=== PATIENT | female | born 1970 | race Two or more races ===

== ENCOUNTER 2016-09-05 08:23 | Observation (INO) | payer OTHER ==
[~2016-09-05] VITALS: Ht 160 cm; Wt 74.1 kg
[2016-09-05] VITALS (28 sets, daily range): BP systolic 98–132; BP diastolic 58–70; PULSE 66–101; RESP 11–18; Ht 160 cm; Wt 74.1 kg
[2016-09-05] MEDS ORDERED: CEFAZOLIN 2 GM/50 ML (PMX) 50 ML IVPB ONE (08:30)
[2016-09-05] MEDS ORDERED: SOD CHLORIDE 0.9% 1,000 ML IV SCH (08:30)
[2016-09-05] MEDS ORDERED: BUPIVACAINE 0.25%/EPI (SDV) 30 ML INJ ONE (08:45)
[2016-09-05 09:53] LABS: ADD SCAN DIFF NO
[2016-09-05 10:08] LABS: BASOPHILS % 0.2 % (0.0-2.0); EOSINOPHILS # 0.2 10^3/ul (0.0-0.5); HEMATOCRIT 40.2 % (37.0-47.0); HEMOGLOBIN 13.5 g/dl (12.0-16.0); LYMPHOCYTES # 2.1 10^3/ul (0.8-2.9); LYMPHOCYTES % 24.8 % (15.0-51.0); MEAN CORPUSCULAR HEMOGLOBIN 32.2 pg (29.0-33.0); MEAN CORPUSCULAR HGB CONC 33.6 g/dl (32.0-37.0); MEAN CORPUSCULAR VOLUME 95.9 fl (82.0-101.0); MEAN PLATELET VOLUME 10.9 fl (7.4-10.4); MONOCYTE # 0.5 10^3/ul (0.3-0.9); MONOCYTES % 5.5 % (0.0-11.0); NEUTROPHIL # 5.6 10^3/ul (1.6-7.5); NEUTROPHILS % 67.3 % (39.0-77.0); PLATELET COUNT 292 10^3/UL (140-415); RED BLOOD COUNT 4.19 10^6/ul (4.20-5.40); RED CELL DISTRIBUTION WIDTH 12.6 % (11.5-14.5); WHITE BLOOD COUNT 8.3 10^3/ul (4.8-10.8)
[2016-09-05 10:17] LABS: CREATININE 0.55 mg/dl (0.44-1.00); POTASSIUM 3.8 mmol/L (3.5-5.1)
[2016-09-05 10:31] LABS: INR 0.98; PARTIAL THROMBOPLASTIN TIME 30.3 Sec (25.0-35.0)
[2016-09-05] MEDS ORDERED: ISOSULFAN BLUE 1% 5 ML INJ SC ONE (10:38)
[2016-09-05] MEDS: D5W-0.45 NACL + KCL 20 MEQ 1,000 ML IV SCH ×3 (11:04→22:26)
[2016-09-05] MEDS ORDERED: hydrALAzine 20 MG INJ IV PRN (11:30)
[2016-09-05] MEDS ORDERED: METOCLOPRAMIDE 10 MG INJ IV PRN (11:30)
[2016-09-05] MEDS ORDERED: ONDANSETRON 4 MG INJ IV PRN ×2 (11:30)
[2016-09-05] MEDS ORDERED: ACETAMINOPHEN 1000MG/100ML IV 100 ML IVPB PRN (11:30)
[2016-09-05] MEDS ORDERED: HYDROmorphONE (0.2 MG/ML) 10ML SYG IV PRN ×2 (11:30)
[2016-09-05] MEDS ORDERED: EPHEDrine SULFATE 50 MG/5 ML SYG IV PRN (11:30)
[2016-09-05] MEDS ORDERED: LABETALOL HCL 20MG INJ IV PRN (11:30)
[2016-09-05] MEDS ORDERED: MEPERIDINE 25 MG INJ IV PRN (11:30)
[2016-09-05] MEDS ORDERED: FENTAnyl 50 MCG/ML VIAL IV PRN ×2 (11:30)
[2016-09-05] MEDS ORDERED: DIPHENHYDRAMINE 50 MG INJ IV PRN (11:30)
[2016-09-05] MEDS ORDERED: MIDAZOLAM 1 MG/ML 2 ML INJ IV PRN (11:30)
[2016-09-05] MEDS ORDERED: morphine (1 MG/ML) 10ML SYRINGE IV PRN ×2 (11:30)
[2016-09-05] MEDS ORDERED: METOCLOPRAMIDE 10 MG INJ ONE (11:36)
[2016-09-05] MEDS ORDERED: CEFAZOLIN 1 GM INJ ONE (11:36)
[2016-09-05] MEDS ORDERED: LIDOCAINE 2% (SDV) 5 ML INJ ONE (11:36)
[2016-09-05] MEDS ORDERED: MEPERIDINE 100 MG INJ ONE (11:36)
[2016-09-05] MEDS ORDERED: PROPOFOL 20 ML ONE (11:36)
[2016-09-05] MEDS ORDERED: ONDANSETRON 4 MG INJ ONE (11:36)
[2016-09-05] MEDS ORDERED: EPHEDrine SULFATE 50 MG/5 ML SYG ONE (12:17)
[2016-09-05] MEDS: morphine 2 MG INJ IV PRN ×3 (17:35→22:22)
--- NOTE | 2016-09-05 20:25 | OPR ---
DATE OF OPERATION: 09/05/2016 PREOPERATIVE DIAGNOSIS: Invasive cancer of the left breast. POSTOPERATIVE DIAGNOSIS: Invasive cancer of the left breast. OPERATION PERFORMED: Left partial mastectomy with axillary dissection utilizing sentinel lymph node technique. ANESTHESIA: General. ANESTHESIOLOGIST: Dr. Shantelle Rosen. SURGEON: Dr. Barajas. PRESIDENT & FOUNDER: Dr. Estevez. INDICATIONS FOR PROCEDURE: The patient is a 45-year-old female who underwent screening mammography and was found to have a suspicious lesion in her left breast. Subsequent core needle biopsy reveale d an invasive cancer. She was counseled as to risks versus benefits of partial mastectomy and senti bea lymph node biopsy. She consented and was scheduled for surgery. DESCRIPTION OF PROCEDURE: The patient was brought to the operating theater, placed under general an esthesia. The left breast and axillary region was prepped and draped in the usual sterile fashion. Approximately 4 mL of 1% Lymphazurin blue dye were then injected peritumorally and breast was gentl y massaged for approximately 12 minutes. At this point, a 3 to 4 cm incision was made in the left a xillary hairline. Subcutaneous tissue was dissected with cautery down through the clavipectoral fas rell. A dye-stained lymphatic was traced to a sentinel node. The sentinel node was resected using t he LigaSure device. Intraoperative analysis was negative for definite metastasis. Therefore, the w ound was irrigated. Minimal bleeding was controlled with cautery, and the skin was closed with a 4- 0 Vicryl suture in a subcuticular fashion. Attention was then directed to performing the partial mastectomy. A curvilinear incision was made o jennifer the palpable mass which was located approximately at 2 o'clock, approximately 3 cm from the nipp le-areolar border. Subcutaneous tissue was dissected with cautery. The skin edges were elevated wi th skin hooks and wide circumferential dissection of the tissue associated with the mass took place, taking great care to ensure adequate margins. Specimen was elevated, transected, oriented, sent fo r radiographic confirmation of capture of the previously placed biopsy clip. The capture was confir med. The specimen was then sent for permanent pathologic analysis. The wound was irrigated. Minim al bleeding was controlled with cautery, and the skin was then reapproximated with 4-0 Vicryl suture s in subcuticular fashion. Dermabond was applied to both incisions. The patient tolerated procedur e well. The estimated blood loss was 20 mL. There were no complications and the patient was transp orted in stable condition to the recovery room. Dictated By: CHEVY BEAL/MAGALY Conf#: [id number] DID#: [id number]
--- NOTE | 2016-09-05 22:58 | HP ---
DATE OF ADMISSION: 09/05/2016 HISTORY OF PRESENT ILLNESS: The patient is a 45-year-old female who denies prior medical h istory. The patient underwent surveillance mammography and subsequent biopsy, which revealed invasi ve cancer of the left breast. The patient was evaluated by Dr. Barajas in surgical consultation and loree rene was brought to the hospital and underwent partial mastectomy of the left breast and axillary dissection. Postoperatively, patient experienced significant pain and was admitted for further eval uation and management. PAST MEDICAL HISTORY: Negative. PAST SURGICAL HISTORY: The patient had a in 2000. FAMILY HISTORY: Negative for history of breast or ovarian cancer. SOCIAL HISTORY: The patient lives with her family. The patient denies any tobacco use, denies any alcohol use, denies any illicit drug use. ALLERGIES: NO KNOWN ALLERGIES. HOME MEDICATIONS: None. REVIEW OF SYSTEMS: A 12-point review of systems is negative unless what mentioned in the HPI. PHYSICAL ASSESSMENT: GENERAL: Well-developed, well-nourished female. Currently is awake, alert. VITAL SIGNS: Temperature 98.1, pulse is 92, blood pressure 108/63, respiratory rate 15, oxygen satu ration 98% on room air. HEENT: Head is atraumatic, normocephalic. Pupils equal, round, reactive to light and accommodation . Oral mucosa is pink and moist. NECK: Supple. No cervical lymphadenopathy, no thyromegaly. CHEST: Lungs clear bilaterally. There are no rhonchi, wheezes, rales noted. The patient with a engle rgical dressing over chest which is dry, clean, and intact. CARDIOVASCULAR: Normal S1, S2. No murmurs, gallops, clicks, rubs noted. ABDOMEN: Round, soft, nondistended, nontender. Bowel sounds present. EXTREMITIES: There is no edema, clubbing, cyanosis. Pulses equal bilaterally 2+. SKIN: There is no rash, petechiae noted. NEUROLOGIC: The patient is awake, alert, and oriented x4. No focal deficits noted. Motor strength 5/5 in all extremities. LABORATORY DATA: On admission, CBC: White blood cells 8.3, hemoglobin 13.5, hematocrit 40.2, plate lets 292. Chemistry: Sodium is 144, potassium 3.8, chloride 105, carbon dioxide 26, anion gap 17, BUN is 15, creatinine 0.55, glucose 88, calcium 9.0. PT 13.0, INR is 0.94, aPTT is 30.3. ASSESSMENT AND PLAN: Invasive cancer of the left breast status post left partial mastectomy and axi llary dissection. Continue morphine and Tylenol p.r.n. for pain. Zofran p.r.n. for nausea. Contin ue IV fluids. Continue incentive spirometer q.1 hour while the patient is awake. Advance diet if p atient tolerates. Continue sequential compression devices for deep venous thrombosis prophylaxis. Further recommendations based on clinical course. Plan of care discussed with Dr. Medina. Dictated By: RASHAWN AGUILA SCREENER AND BLENDER for HOLLY MEDINA MD SR/NTS Conf#: [id number] DID#: [id number]
[2016-09-06 00:19] VITALS: BP 111/59; RESP 18
[2016-09-06 04:30] VITALS: BP 114/55; PULSE 90; RESP 16
[2016-09-06] MEDS: morphine 2 MG INJ IV PRN (05:29)
[2016-09-06 05:42] LABS: ADD SCAN DIFF NO
[2016-09-06 05:48] LABS: BASOPHILS % 0.2 % (0.0-2.0); EOSINOPHILS # 0.2 10^3/ul (0.0-0.5); EOSINOPHILS % 2.1 % (0.0-7.0); HEMATOCRIT 37.1 % (37.0-47.0); HEMOGLOBIN 12.1 g/dl (12.0-16.0); LYMPHOCYTES # 2.5 10^3/ul (0.8-2.9); LYMPHOCYTES % 29.4 % (15.0-51.0); MEAN CORPUSCULAR HEMOGLOBIN 31.8 pg (29.0-33.0); MEAN CORPUSCULAR HGB CONC 32.6 g/dl (32.0-37.0); MEAN CORPUSCULAR VOLUME 97.4 fl (82.0-101.0); MEAN PLATELET VOLUME 10.8 fl (7.4-10.4); MONOCYTE # 0.6 10^3/ul (0.3-0.9); MONOCYTES % 7.2 % (0.0-11.0); NEUTROPHIL # 5.2 10^3/ul (1.6-7.5); PLATELET COUNT 282 10^3/UL (140-415); RED BLOOD COUNT 3.81 10^6/ul (4.20-5.40); RED CELL DISTRIBUTION WIDTH 12.7 % (11.5-14.5); WHITE BLOOD COUNT 8.6 10^3/ul (4.8-10.8)
[2016-09-06 06:18] LABS: POTASSIUM 3.8 mmol/L (3.5-5.1)
[2016-09-06 06:20] LABS: CREATININE 0.5 mg/dl (0.44-1.00)
[2016-09-06 06:21] LABS: CALCIUM 8.2 mg/dl (8.4-10.2)
[2016-09-06] MEDS: D5W-0.45 NACL + KCL 20 MEQ 1,000 ML IV SCH ×2 (06:42→11:04)
[2016-09-06] MEDS ORDERED: HYDROCODONE/APAP (5/325) TAB PO PRN (08:00)
[2016-09-06 08:16] VITALS: BP 118/59; RESP 14
[2016-09-06] MEDS ORDERED: HYDR-3498 PO (15:57)
--- NOTE | 2016-09-07 01:08 | PN ---
DATE: Postop day #1 left partial mastectomy with sentinel lymph node axillary dissection. SUBJECTIVE: No complaint. OBJECTIVE: Vital signs 98.1, 85, 14, blood pressure 118/59, saturation 97% on room air. LABORATORY DATA: WBC 8600, hemoglobin 12.1. Dressing is intact. Moves left hand and left forearm and left shoulder easily. ASSESSMENT AND PLAN: Postoperative day #1 partial mastectomy with axillary dissection for cancer of the left breast. Patient is stable. Patient is going to be discharged home to be followed with Livia Barajas in the office. [place] pain medication has been written for the patient. Dictated By: AR PINEDO MD PS/NTS Conf#: [id number] DID#: [id number]
--- NOTE | 2016-09-12 04:44 | DS ---
DATE OF ADMISSION: 09/06/2016 DATE OF DISCHARGE: 09/06/2016 FINAL DIAGNOSIS: Invasive cancer of the left breast status post partial mastectomy and axillary dis section. BRIEF HISTORY: The patient is an unfortunate 45-year-old female with no prior significant medical history. The patient underwent surveillance mammography and subsequent biopsy which reveale d invasive cancer of the left breast. The patient was evaluated by Dr. Barajas in surgical consultati on and the patient was brought to the hospital and underwent partial mastectomy of the left breast w ith axillary dissection. , the patient complained of significant pain and was admitted for fur ther evaluation and management. HOSPITAL COURSE: The patient was given Tylenol and morphine for pain and Zofran p.r.n. for nausea. The patient also received intraoperative antibiotics. The patient's condition gradually improved a nd pain was well controlled and the patient was discharged home on postoperative day #1. DISCHARGE CONDITION: Hemodynamically stable. ACTIVITY: As the patient tolerates. DIET: Regular diet. DISCHARGE MEDICATIONS: The patient was given prescription for [place] p.r.n. for pain. The patient i s instructed to follow up with Dr. Barajas in postoperative appointment in 5 to 7 days. Interdisciplinary plan of care was established for this patient. Plan of care was discussed with Dr Julian Gunter. Dictated By: RASHAWN AGUILA PHOTOGRAPHERS' MODEL for HOLLY GUNTER MD SR/NTS Conf#: [id number] DID#: [id number]
== END 2016-09-06 18:35 | disposition home or self-care (01) ==
LOC: SDS 08:23 → MS1 14:20 → SDS 09-06 10:48
PROVIDERS: ADMIT Surgery Surgical Oncology; ATTEND Surgery Surgical Oncology
DX: C50.912 Malignant neoplasm of unspecified site of left female breast (principal); Z17.0 Estrogen receptor positive status [ER+]; N60.92 Unspecified benign mammary dysplasia of left breast; N60.12 Diffuse cystic mastopathy of left breast
CPT/HCPCS: 19301; 38525; 80048; 84703; 85025; 85610; 85730; 88307; 88313; 88331; 88342; 96361; 96374; 96376; J0690; J1170; J2175; J2270; J2405; J2765; J3010; J3480; Z7500; Z7512; Z7610; G0378; Q9968